=== PATIENT | male | born 1995 | race African-American/Black ===

== ENCOUNTER 2016-12-28 00:54 | Emergency (ER) | payer SELFPAY ==
--- NOTE | 2016-12-28 01:10 | ER Document Report ---
ED Medical Screen (RME) - General Chief Complaint: Palpitations Stated Complaint: RAPID HEART BEAT Time seen by provider: 01:07 Mode of Arrival: Ambulatory Information source: Patient Notes: 21-year-old male presents to ED for rapid heartbeat, sore throat, and with cough pain to throat when he coughs. States his cough and sore throat started this morning. States heart feels like it is slowing down now able pulse 78 I have greeted and performed a rapid initial assessment of this patient. A comprehensive ED assessment and evaluation of the patient, analysis of test results and completion of medical decision making process will be conducted by an additional ED providers. TRAVEL OUTSIDE OF THE [place] IN LAST 30 DAYS: No - Related Data Allergies/Adverse Reactions: No Known Allergies Allergy (Verified 08/05/15 03:21) Past Medical History Pulmonary Medical History: Reports: Hx Asthma - Immunizations Immunizations up to date: Yes Hx Diphtheria, Pertussis, Tetanus Vaccination: Yes Physical Exam - Vital signs Vitals: Temp Pulse Resp BP Pulse Ox 99.3 F 78 16 135/78 H 99 12/28/16 00:58 12/28/16 00:58 12/28/16 00:58 12/28/16 00:58 12/28/16 00:58 Course - Vital Signs Vital signs: Temp Pulse Resp BP Pulse Ox 99.3 F 78 16 135/78 H 99 12/28/16 00:58 12/28/16 00:58 12/28/16 00:58 12/28/16 00:58 12/28/16 00:58
--- NOTE | 2016-12-28 06:52 | ER Document Report ---
ED ENT <ANA ELLIOTT - Last Filed: 12/28/16 10:42> - General Time seen by provider: 06:47 Mode of Arrival: Ambulatory Information source: Patient TRAVEL OUTSIDE OF THE [place] IN LAST 30 DAYS: No - HPI Patient complains to provider of: Ear problem, Throat problem Onset: Yesterday Onset/Duration: Gradual, Worse Quality of pain: Sharp Severity: Moderate Pain Level: 4 Context: Recent Illness Location of pain: Ears, Face, Throat Associated symptoms: Neck pain, Runny nose, Sore throat, Swollen glands Similar symptoms previously: No Recently seen / treated by doctor: No <TRAV RICO - Last Filed: 12/29/16 06:05> - General Chief Complaint: Palpitations Stated Complaint: RAPID HEART BEAT Notes: 21-year-old male presents to ED for sore throat and pain to the right side of his face your neck. He states that home tonight his heart was beating real fast but by the time he got to the emergency room his pulse was 78. He was seen in the E and stated he had a cough with a sore throat that started this morning with no fever and the pain was worse when he coughed. Patient states he has some difficulty swallowing due to the pain. (TRAV RICO) - Related Data Allergies/Adverse Reactions: No Known Allergies Allergy (Verified 08/05/15 03:21) Past Medical History - General Information source: Patient - Social History Smoking Status: Never Smoker Frequency of alcohol use: Occasional Drug Abuse: None Occupation: [employer] Lives with: Parents Family History: Hypertension, Malignancy Patient has suicidal ideation: No Patient has homicidal ideation: No - Past Medical History Cardiac Medical History: Reports: None Pulmonary Medical History: Reports: Hx Asthma EENT Medical History: Reports: None Neurological Medical History: Reports: None Endocrine Medical History: Reports: None Renal/ Medical History: Reports: None Malignancy Medical History: Reports None GI Medical History: Reports: None Musculoskeltal Medical History: Reports None Skin Medical History: Reports None Psychiatric Medical History: Reports: None Traumatic Medical History: Reports: None Infectious Medical History: Reports: None Surgical Hx: Negative Past Surgical History: Reports: None - Immunizations Immunizations up to date: Yes Hx Diphtheria, Pertussis, Tetanus Vaccination: Yes <TRAV RICO - Last Filed: 12/29/16 06:05> Review of Systems - Review of Systems Constitutional: Recent illness EENT: Ear pain, Nose discharge, Throat pain Cardiovascular: Palpitations - Patient states he had palpitations yesterday done the day no palpitations when I examined him in E or in the emergency room Respiratory: No symptoms reported Gastrointestinal: No symptoms reported Genitourinary: No symptoms reported Male Genitourinary: No symptoms reported Musculoskeletal: No symptoms reported Skin: No symptoms reported Hematologic/Lymphatic: No symptoms reported Neurological/Psychological: No symptoms reported -: Yes All other systems reviewed and negative <TRAV RICO - Last Filed: 12/29/16 06:05> Physical Exam - Vital signs Interpretation: Normal - General General appearance: Appears well, Alert - HEENT Head: Normocephalic, Atraumatic Eyes: Normal Pupils: PERRL Ears: Normal External canal: Normal Tympanic membrane: Normal Sinus: Normal Nasal: Purulent discharge, Swelling Mouth/Lips: Normal Pharynx: Erythema, Exudate, Post nasal drainage, Tonsillar hypertrophy - Right greater than left Neck: Anterior cervical chain - Respiratory Respiratory status: No respiratory distress Chest status: Nontender Breath sounds: Normal Chest palpation: Normal - Cardiovascular Rhythm: Regular Heart sounds: Normal auscultation Murmur: No - Abdominal Inspection: Normal Distension: No distension Bowel sounds: Normal Tenderness: Nontender Organomegaly: No organomegaly - Back Back: Normal, Nontender - Extremities General upper extremity: Normal inspection, Nontender, Normal color, Normal ROM , Normal temperature General lower extremity: Normal inspection, Nontender, Normal color, Normal ROM , Normal temperature, Normal weight bearing. No: Marilyn's sign - Neurological Neuro grossly intact: Yes Cognition: Normal Orientation: AAOx4 Cayce Coma Scale Eye Opening: Spontaneous Cayce Coma Scale Verbal: Oriented Mani Coma Scale Motor: Obeys Commands Cayce Coma Scale Total: 15 Speech: Normal Motor strength normal: LUE, RUE, LLE, RLE Sensory: Normal - Psychological Associated symptoms: Normal affect, Normal mood - Skin Skin Temperature: Warm Skin Moisture: Dry Skin Color: Normal <TRAV RICO - Last Filed: 12/29/16 06:05> - Vital signs Vitals: Temp Pulse Resp BP Pulse Ox 99.3 F 78 16 135/78 H 99 12/28/16 00:58 12/28/16 00:58 12/28/16 00:58 12/28/16 00:58 12/28/16 00:58 (ANA ELLIOTT) (TRAV RICO) Course - Laboratory Result Diagrams: 12/28/16 01:20 12/28/16 01:20 <ANA ELLIOTT - Last Filed: 12/28/16 10:42> - Laboratory Result Diagrams: 12/28/16 01:20 12/28/16 01:20 <TRAV RICO - Last Filed: 12/29/16 06:05> - Re-evaluation Re-evalutation: 12/28/16 08:57 Dr. Mcneal the ENT doctor was called due to the CT results which showed enlarged right pharyngeal tonsil with hypodense area along posterior and superior aspect which is worrisome for early or developing peritonsillar abscess. There is a deep tissue edema and inflammation extending down to the level of the right submandibular gland. Asymmetric rightward edema and the epiglottis and aryepiglottic fold is present without airway compromise. He is going to look at the CT, he recommends 3 g of Unasyn IV which I ordered. 12/28/16 10:30 dr. mcneal here to evaluated pt. can go home, tx with augmentin 875 bid. medrol dose pack. f/u his office. 12/28/16 10:32 (ANA ELLIOTT) 12/28/16 06:[address] Ferguson for right tonsil larger than left with pain to right ear face and neck. CT soft tissue neck with contrast. Giving report to Ana Lehman and she stated that she does not feel the patient needs the CT and requested Dr Ferguson examine the patient before he goes to the CT. Patient ordered clindamycin, toradol, morphine and zofran IV with IV fluids. Ana Lehman. to assume care of patient 12/28/16 07:20 Dr. Adamson examine the patient's throat and stated to please do the CAT scan is ordered. He also requested CBC and Toradol which I have ordered. (TRAV RICO) - Vital Signs Vital signs: Temp Pulse Resp BP Pulse Ox 98.4 F 73 16 118/67 100 12/28/16 11:07 12/28/16 11:07 12/28/16 11:07 12/28/16 11:07 12/28/16 11:07 (ANA ELLIOTT) (TRAV RICO) - Laboratory Laboratory results interpreted by me: 12/28/16 12/28/16 01:20 01:20 Lymphocytes % 10.5 L Glucose 116 H (ANA ELLIOTT) Discharge <ANA ELLIOTT - Last Filed: 12/28/16 10:42> <TRAV RICO - Last Filed: 12/29/16 06:05> - Discharge Clinical Impression: Exudative tonsillitis, small right CT abscess right Condition: Good Disposition: HOME, SELF-CARE Instructions: Corticosteroid Medication ([facility]), Oral Narcotic Medication ([facility]), Tonsillitis ([facility]), Augmentin ([facility]) Additional Instructions: drink 2 liters of water daily see dr. mcneal at his office for recheck [address] [phone] return to er if worsening symptoms Prescriptions: Amoxicillin/Potassium Clav [Augmentin 875-125 Tablet] 1 each PO BID #20 tablet Oxycodone HCl/Acetaminophen [Percocet 5-325 mg Tablet] 1 - 2 tab PO ASDIR PRN # 15 tablet PRN Reason: Prednisone [Deltasone 10 mg Tablet] 10 mg PO ASDIR PRN #21 tablet PRN Reason: Forms: Return to Work Referrals: SHANON MCNEAL MD [[facility]] - Follow up tomorrow
[2016-12-28] MEDS ORDERED: CLINDAMYCIN 600 MG/D5W RTU 50 ML IV ONE (06:56)
[2016-12-28] MEDS ORDERED: DEXAMETHASONE SOD PHOS INJ 10 MG/1 ML VIAL IV ONE (06:57)
[2016-12-28] MEDS ORDERED: NORMAL SALINE 1000 ML 1,000 ML IV ONE (07:00)
[2016-12-28] MEDS ORDERED: MORPHINE SULFATE 10 MG/ML INJ IV ONE (07:02)
[2016-12-28] MEDS ORDERED: ONDANSETRON HCL INJ/PF 4 MG/2 ML SDV IV ONE (07:02)
[2016-12-28] MEDS ORDERED: ONDANSETRON HCL INJ/PF 4 MG/2 ML SDV ONE (07:09)
[2016-12-28 07:12] LABS: ALANINE AMINOTRANSFERASE 22 U/L (21-72); ALBUMIN 4.2 g/dL (3.5-5.0); ALKALINE PHOSPHATASE 74 U/L (38-126); ANION GAP 10 (5-19); ASPARTATE AMINO TRANSFERASE 18 U/L (17-59); BILIRUBIN,TOTAL 0.5 mg/dL (0.2-1.3); BLOOD UREA NITROGEN 14 mg/dL (7-20); CALCIUM 9.5 mg/dL (8.4-10.2); CARBON DIOXIDE 30 mmol/L (22-30); CHLORIDE 102 mmol/L (98-107); CREATININE RESULT 1.18 mg/dL (0.52-1.25); GLUCOSE 116 mg/dL (75-110); POTASSIUM 4.2 mmol/L (3.6-5.0); SODIUM 142.4 mmol/L (137-145); TOTAL PROTEIN 7.4 g/dL (6.3-8.2)
[2016-12-28] MEDS ORDERED: KETOROLAC TROMETHAMINE INJ/PF 30 MG/1 ML SDV IV ONE (07:19)
[2016-12-28 07:22] LABS: ABSOLUTE EOSINOPHILS # (AUTO) 0.1 10^3/uL (0.0-0.6); ABSOLUTE LYMPHOCYTES (AUTO) 0.9 10^3/uL (0.5-4.7); ABSOLUTE NEUT (AUTO) 6.5 10^3/uL (1.7-8.2); BASOPHILS % (AUTO) 0.4 % (0-2); EOSINOPHILS % (AUTO) 0.7 % (0-6); HEMATOCRIT 43.6 % (37.9-51.0); HEMOGLOBIN 14.8 g/dL (13.5-17.0); HGB HCT DIFFERENCE 0.8; LYMPHOCYTES % (AUTO) 10.5 % (13-45); MEAN CORPUSCULAR HEMOGLOBIN 31.6 pg (27.0-33.4); MEAN CORPUSCULAR VOLUME 93 fl (80-97); MONOCYTES % (AUTO) 11.8 % (3-13); RED CELL DISTRIBUTION WIDTH 12.4 % (11.5-14.0); SEGMENTED NEUTROPHILS % (AUTO) 76.6 % (42-78); WHITE BLOOD COUNT 8.5 10^3/uL (4.0-10.5)
[2016-12-28] MEDS ORDERED: AMPICILLIN SOD/SULBACTAM 3 GM VIAL IV ONE (08:56)
[2016-12-28 11:10] VITALS: BP 118/67
--- NOTE | 2016-12-28 12:23 | CONSULTATION REPORT E ---
Consultation Report NAME: JENNA TIM : 1995 AGE: 21Y DATE: 12/28/2016 TO: SHANON MCNEAL M.D. FROM: VIKI ORTIZ Requesting Physician PRESENTING COMPLAINT: Dysphagia, odynophagia, right otalgia, cough, and palpitations. HISTORY OF PRESENT ILLNESS: This is a 21-year-old young man who presented to the emergency department at [facility] at around 0630 hours this morning. He was seen by the nurse practitioner and evaluated. Initially, focus tended to be on his rapid tachycardia, but this may have been driven by the right-sided throat pain and by the time he was evaluated, his heart rate had already reduced to 78 per minute. Subsequently, it was noted that there was enlargement of the right tonsil area, such that it was very much bigger than the left. The nurse practitioner discussed this with the physician, Dr. Adamson, and a decision was taken by him to obtain a contrast enhanced CT scan. That scan appeared to show not only a lucency in the right peritonsillar space, but also extension of the inflammation down the right parapharyngeal space towards the right aryepiglottic fold and also down into the right neck,surrounding the right submandibular gland. It was because of this CT scan report that JOHNNIE Craig (who had now taken over the care of the patient), contacted ENT. She herself stated that the patient did not have trismus or a hot potato voice and she was merely looking for the potential to have the patient seen at [facility], tomorrow. However, since there was a CT scan in existence, otolaryngology suggested that this should be reviewed by ENT, and a decision should then be taken about how, when and where the patient should be evaluated. Because of the radiological appearance of right peritonsillar abscess, otolaryngology suggested that the patient should be seen by ENT in the emergency department. This physician was in fact in the operating room at the time and then proceeded to the emergency department. Because of construction in the ICU, ICU patients have been placed in the emergency department, restricting the availability of rooms. The patient therefore was seen and evaluated on a stretcher in a hallway, which was a less than ideal situation. The patient was clear that he was already somewhat better, having received 3 g of intravenous Unasyn and 10 mg of Decadron, intravenously. He stated that he was a nonsmoker. He works at [employer]. He still lives at home. He admits also that he goes to the gym a lot, both to run and also to lift weights, but that he only eats 1 meal a day and tends to eat junk food and not much in the way of fruits and vegetables. PHYSICAL EXAMINATION: GENERAL: Exam revealed a tall, slim, generally healthy-appearing 21-year-old male who has a ready smile. HEENT: There is definitely no trismus. No drooling. No hot potato voice and he does not appear unwell at this point. The patient's pharynx was then evaluated. It is true that the right tonsil does appear bigger than the left. There are large white spots on both tonsils. However, the uvula is in the midline. The palate elevates in the midline. There is no bulge in the right side of the soft palate. There is tenderness in the right neck, as would be expected from the lymphadenopathy detected by the CT scan. IMPRESSION: The impression is that the patient has acute follicular tonsillitis with exudates and has, radiologically, a right peritonsillar abscess. Parenthetically, it is fair to say that had the CT scan not been done, clinically, there are no signs that the patient had a developing peritonsillar abscess. Also, in general, an abscess smaller than 2 cm is technically challenging to find, surgically, either with aspiration techniques or incision and drainage techniques. At this stage, the plan is to administer 3 g of intravenous Unasyn stat. He could then be discharged on oral Augmentin 875 mg p.o. b.i.d. for 2 weeks. He will need to take probiotics on a t.i.d. basis. It was suggested that he could use yogurt to do that. A Medrol Dose pack may help him in the near term as far as pain and swelling is concerned. It is suggested that he make an appointment to be followed by [facility] in approximately 6 weeks to consider his candidacy (or lack thereof) for adult tonsillectomy. He is strongly encouraged to change his diet to include more fruits and vegetables and less junk food and he appeared to accept that advice. The case was discussed at this point with JOHNNIE Craig and she said that she would take care of the details. DICTATING PHYSICIAN: SHANON MCNEAL M.D. [id number] PHY#: [id number] ID: [id number] JOB#: [id number] ACCT: [id number] cc:SHANON MCNEAL M.D. > MTDD
== END 2016-12-28 11:10 | disposition home or self-care (01) ==
LOC: ER 00:54
DX: J36 Peritonsillar abscess (principal); M54.2 Cervicalgia; R51 Headache; H92.01 Otalgia, right ear; R09.89 Other specified symptoms and signs involving the circulatory and respiratory systems; R05 Cough; J45.909 Unspecified asthma, uncomplicated
CPT/HCPCS: 99285; 96375; 96365; 36415; 87070; 87880; 85025; 86308; 80053; 70491; J0295; J1885; J2270; J2405; J7030; J1100

== ENCOUNTER 2017-02-18 00:29 | Emergency (ER) | payer SELFPAY ==
[2017-02-18 00:53] VITALS: BP 129/68
[2017-02-18] MEDS ORDERED: ACETAMINOPHEN 325 MG TABLET PO ONE (00:53)
[2017-02-18] MEDS ORDERED: PREDNISONE 20 MG TABLET PO ONE (05:36)
[2017-02-18] MEDS ORDERED: AMOXICILLIN TR/POT CLAVULANATE 500-125 MG TAB PO ONE (05:37)
--- NOTE | 2017-02-18 06:02 | ER Document Report ---
ED General - General Chief Complaint: Sore Throat Stated Complaint: SORE THROAT AND EAR PAIN Time seen by provider: 05:08 Mode of Arrival: Ambulatory Information source: Patient TRAVEL OUTSIDE OF THE [place] IN LAST 30 DAYS: No - HPI Notes: Patient presents with recurrence of right greater than left pharyngitis with swelling. Patient was seen last month with the same and had a CT scan that raised a question of an early peritonsillar abscess. The patient was given steroids and Augmentin and had resolution of the abscess, but the patient reports a recurrence of the same symptoms currently. He states he is able to swallow but with some pain. He has no significant change with this voice. Patient does have a low-grade fever today. With previous evaluation and workup, the patient had a negative strep test and a negative mono test. Patient has a follow-up with ENT Dr. Mcneal in 6 days. Patient denies any chest pain. No difficulty breathing. - Related Data Allergies/Adverse Reactions: No Known Allergies Allergy (Verified 08/05/15 03:21) Past Medical History - Social History Smoking Status: Never Smoker Chew tobacco use (# tins/day): No Frequency of alcohol use: None Drug Abuse: None Family History: Hypertension, Malignancy Patient has suicidal ideation: No Patient has homicidal ideation: No Pulmonary Medical History: Reports: Hx Asthma Renal/ Medical History: Denies: Hx Peritoneal Dialysis Surgical Hx: Negative - Immunizations Immunizations up to date: Yes Hx Diphtheria, Pertussis, Tetanus Vaccination: Yes Review of Systems - Review of Systems Notes: REVIEW OF SYSTEMS: CONSTITUTIONAL : No significant weight loss EENT: Denies eye symptoms. Denies nasal or sinus congestion or discharge. Denies tongue, or mouth swelling or difficulty swallowing. CARDIOVASCULAR: Denies chest pain. Denies palpitations or racing or irregular heart beat. Denies ankle edema. RESPIRATORY: Denies cough, cold, or chest congestion. Denies shortness of breath, difficulty breathing, or wheezing. GASTROINTESTINAL: Denies abdominal pain or distention. Denies nausea, vomiting , or diarrhea. Denies blood in vomitus, stools, or per rectum. Denies black, tarry stools. Denies constipation. GENITOURINARY: Denies difficulty urinating, painful urination, burning, frequency, blood in urine, or discharge. FEMALE GENITOURINARY: Denies vaginal bleeding, heavy or abnormal periods, irregular periods. Denies vaginal discharge or odor. MUSCULOSKELETAL: Denies back or neck pain or stiffness. Denies joint pain or swelling. SKIN: Denies rash, lesions or sores. HEMATOLOGIC : Denies easy bruising or bleeding. LYMPHATIC: Denies swollen, enlarged glands. NEUROLOGICAL: Denies confusion or altered mental status. Denies passing out or loss of consciousness. Denies dizziness or lightheadedness. Denies headache. Denies weakness or paralysis or loss of use of either side. Denies problems with gait or speech. Denies sensory loss, numbness, or tingling. Denies seizures. PSYCHIATRIC: Denies anxiety or stress. Denies depression, suicidal ideation, or homicidal ideation. ALL OTHER SYSTEMS REVIEWED AND NEGATIVE. Dictation was performed using [employer] voice recognition software Physical Exam - Vital signs Vitals: Temp Pulse Resp BP Pulse Ox 100.2 F 95 18 129/68 H 96 02/18/17 00:48 02/18/17 00:48 02/18/17 00:48 02/18/17 00:48 02/18/17 00:48 - Notes Notes: PHYSICAL EXAMINATION: GENERAL: Well-appearing, well-nourished and in no acute distress. HEAD: Atraumatic, normocephalic. EYES: Pupils equal round and reactive to light, extraocular movements intact, sclera anicteric, conjunctiva are normal. ENT: Nares patent, Moist mucous membranes. Posterior pharynx shows right greater than left tonsillar erythema with exudate. No significant uvular shift or obvious pointing abscess. No evidence for respiratory compromise. No sublingual swelling or dental abscess or evidence for Ector's NECK: Normal range of motion, supple with mild adenopathy anterior cervical chain bilaterally. LUNGS: Breath sounds clear to auscultation bilaterally and equal. No wheezes rales or rhonchi. HEART: Regular rate and rhythm without murmurs ABDOMEN: Soft, nontender, nondistended abdomen. No guarding, no rebound. No masses appreciated. Musculoskeletal: Normal range of motion, no pitting or edema. No cyanosis. NEUROLOGICAL: Cranial nerves grossly intact. Normal speech, normal gait. Normal sensory, motor exams PSYCH: Normal mood, normal affect. SKIN: Warm, Dry, normal turgor, no rashes or lesions noted. Course - Re-evaluation Re-evalutation: 02/18/17 06:05 No suggestion for respiratory compromise or pointing abscess, and the patient's symptoms fit with previous early peritonsillar abscess is noted on prior CT scan. Patient is given steroids and Augmentin which worked for the last episode. We' ll also provide medication for pain and inflammation, and will follow up with ENT as scheduled in 6 days. Patient will return in case any worsening swelling or difficulty breathing or difficulty swallowing. Patient was told that given the recurrence of pharyngitis as noted that he will need a tonsillectomy performed eventually, when acute infection has been appropriately addressed. No evidence for strep. 02/18/17 06:09 - Vital Signs Vital signs: Temp Pulse Resp BP Pulse Ox 100.2 F 95 18 129/68 H 96 02/18/17 00:48 02/18/17 00:48 02/18/17 00:48 02/18/17 00:48 02/18/17 00:48 Discharge - Discharge Clinical Impression: Pharyngitis Qualifiers: Pharyngitis/tonsillitis etiology: unspecified etiology Qualified Code(s): J02.9 - Acute pharyngitis, unspecified Fever Qualifiers: Fever type: due to other condition Qualified Code(s): R50.81 - Fever presenting with conditions classified elsewhere Condition: Stable Disposition: HOME, SELF-CARE Instructions: Oral Narcotic Medication ([facility]), Sore Throat ([facility]) Additional Instructions: Return to the ED in case of severe swelling or difficulty breathing or inability to swallow. Prescriptions: Hydrocodone/Acetaminophen [Ashley 5-325 Tablet] 1 each PO Q4HP PRN #20 tablet PRN Reason: Amox Tr/Potassium Clavulanate [Augmentin 875-125 Tablet] 1 tab PO BID 10 Days Ibuprofen 800 mg PO TIDP PRN #30 tablet PRN Reason: Prednisone [Deltasone 10 mg Tablet] 10 mg PO ASDIR PRN #21 tablet PRN Reason: Forms: Return to Work Referrals: SHANON MCNEAL MD [[facility]] - Follow up as needed
== END 2017-02-18 06:31 | disposition home or self-care (01) ==
LOC: ER 00:29
DX: J02.9 Acute pharyngitis, unspecified (principal); R50.81 Fever presenting with conditions classified elsewhere; J45.909 Unspecified asthma, uncomplicated
CPT/HCPCS: 99283; 87070; 87880; J7512